=== PATIENT | male | born 1970 ===

== ENCOUNTER 2018-04-20 16:35 | Emergency (ER) | payer OTHER ==
[2018-04-20 16:35] VITALS: BMI 30.7
[2018-04-20 16:59] VITALS: O2SAT 100
[2018-04-20] MEDS ORDERED: Sodium Chloride 0.9% 1,000 ML IV ONE (17:04)
[2018-04-20 17:22] LABS: BASO # 0.1 K/uL (0.0-0.2); BASO % 1.1 % (0.0-2.0); EOS # 0.7 K/uL (0.0-0.7); EOS % 7.1 % (0.0-4.0); HEMOGLOBIN 13.9 g/dL (12.0-18.0); LYMPH % 21.8 % (20.0-40.0); MEAN CELL VOLUME 81.5 fL (80.0-94.0); MEAN CORPUSCULAR HEMOGLOBIN 27.5 pg (27.0-31.0); MEAN CORPUSCULAR HGB CONC 33.8 g/dL (33.0-37.0); MEAN PLATELET VOLUME 8.9 fL (7.2-11.7); MONO # 1.1 K/uL (0.0-0.8); MONO % 11.7 % (0.0-10.0); NEUT # 5.3 K/uL (1.8-7.0); NEUT % 58.3 % (50.0-75.0); NRBC % 0.1 % (0.0-2.0); RBC 5.05 Mil/uL (4.40-5.90); RED CELL DISTRIBUTION WIDTH 15.1 % (11.5-14.5); WHITE BLOOD COUNT 9.2 K/uL (4.8-10.8)
[2018-04-20] MEDS ORDERED: Sodium Chloride 0.9% 1,000 ML ONE (17:22)
--- NOTE | 2018-04-20 17:30 | C.PDOC ---
History Of Present Illness 47 y/o male presents to the ER for evaluation of left thigh injury which occurred 5 days ago. Patient states that he was playing soccer when he was kicked in the left thigh. Patient reports that he did not take any medications. He notes that he was evaluated in the clinic after the injury, he returned to the clinic today because he had bruising below the site of injury. His PCP, recommended him to the ER. Denies having joint pain and other complaints at this time. Time Seen by Provider: 04/20/18 16:57 Chief Complaint (Nursing): Lower Extremity Problem/Injury History Per: Patient History/Exam Limitations: no limitations Onset/Duration Of Symptoms: Days Current Symptoms Are (Timing): Still Present Severity: Moderate Past Medical History Reviewed: Historical Data, Nursing Documentation, Vital Signs Vital Signs: Last Vital Signs Temp 98.7 F 04/20/18 16:56 Pulse 72 04/20/18 16:56 Resp 17 04/20/18 16:56 BP 132/86 04/20/18 16:56 Pulse Ox 100 04/20/18 18:57 - Medical History PMH: Asthma (never hospitalized), Fractures (RIGHT FIBULA) Denies: Chronic Kidney Disease Other Surgeries: Hx of surgeries - [facility] Procedures ANESTH INJEC PERIPH NERV (04/12/15) APPLICATION OF SPLINT (03/28/15) OPEN REDUC-ANKLE DISLOC (04/12/15) OTHER & OPEN REPAIR UMBILICAL HERNIA W GRAFT OR PROSTHESIS (10/10/14) PHYSICAL THERAPY NEC (06/07/15) Family History: States: No Known Family Hx - Social History Hx Tobacco Use: No Hx Alcohol Use: Yes Hx Substance Use: No - Immunization History Hx Tetanus Toxoid Vaccination: Yes Hx Influenza Vaccination: No Hx Pneumococcal Vaccination: No Review Of Systems Except As Marked, All Systems Reviewed And Found Negative. Musculoskeletal: Positive for: Other (left thigh pain) Neurological: Negative for: Weakness, Numbness Physical Exam - Physical Exam Appears: Non-toxic, No Acute Distress Skin: Normal Color, Warm, Dry, Ecchymosis (ecchymosis above left knee) Head: Atraumatic, Normacephalic Eye(s): bilateral: Normal Inspection Nose: Normal Oral Mucosa: Moist Neck: Supple Chest: Symmetrical Cardiovascular: Rhythm Regular Respiratory: Normal Breath Sounds, No Rales, No Rhonchi, No Wheezing Gastrointestinal/Abdominal: Normal Exam, Soft, No Tenderness, No Guarding, No Rebound Extremity: Normal ROM, Tenderness (tenderness to left thigh), Swelling ( swelling to left thigh), Other (left thigh is not firm, no abscess, no erythema , no crepitus, skin is not tense ) Pulses: Left Femoral: Normal (popliteal), Right Femoral: Normal (popliteal), Left Dorsalis Pedis: Normal (DP/PT), Right Dorsalis Pedis: Normal (DP/PT) Neurological/Psych: Oriented x3, Normal Speech ED Course And Treatment - Laboratory Results Result Diagrams: 04/20/18 17:18 04/20/18 17:18 O2 Sat by Pulse Oximetry: 100 (RA) Pulse Ox Interpretation: Normal Medical Decision Making Medical Decision Making: Patient only has thigh pain with no pallor, paralysis, and/or paresthesia. Therefore, given duration of symptoms, compartment syndrome is unlikely. Impression: Thigh Contusion Plan: --CT- LLE --Toradol IV --IV Fluids 1800 - patient reevaluated and pain has improved. leg contusion - case s/o to Dr. Morin at [address] scan results, reevaluation and disposition Disposition - Disposition Disposition Time: 19:00 Condition: STABLE Forms: [facility] (Ukrainian) - Clinical Impression Clinical Impression: Contusion - Scribe Statement The provider has reviewed the documentation as recorded by the Cristyibe Danielle Crump Provider Attestation: All medical record entries made by the Scribe were at my direction and personally dictated by me. I have reviewed the chart and agree that the record accurately reflects my personal performance of the history, physical exam, medical decision making, and the department course for this patient. I have also personally directed, reviewed, and agree with the discharge instructions and disposition. Physician Patient Turnover Patient Signed Over To: Jovan Morin Handoff Comments: pending ct scan results and disposition
[2018-04-20 17:34] LABS: ALB/GLOB RATIO 1.2 (1.0-2.1); ALBUMIN 4.2 g/dL (3.5-5.0); ALT/SGPT 39 U/L (21-72); AST/SGOT 27 U/L (17-59); BLOOD UREA NITROGEN 13 mg/dL (9-20); CALCIUM 9.1 mg/dl (8.6-10.4); GFR AFRICAN-AMERICAN > 60; GFR NON-AFRICAN AMERICAN > 60
[2018-04-20 17:47] LABS: INR 1.1; PROTHROMBIN TIME 11.9 SECONDS (9.7-12.2)
[2018-04-20] MEDS ORDERED: Iodixanol 320 MG/ML 100 ML BOTTLE IV ONE (18:02)
[2018-04-20 20:34] VITALS: BP 133/87; PULSE 70; RESP 18; TEMP 98.2
--- NOTE | 2018-04-21 10:47 | CT ---
Date of service: 04/20/2018 PROCEDURE: CT of the left thigh/femur with contrast HISTORY: left thigh swelling s/p soccer injury COMPARISON: No prior similar study available for comparison. TECHNIQUE: Axial and reformatted coronal and sagittal CT images of the left thigh were obtained from the mid pelvis level to the level of the left knee after IV contrast administration. Total contrast injection: 100 mL Visipaque 320. Total exam DLP: 596.91 FINDINGS: Mild fat stranding noted adjacent to the left is scale tuberosity. No evidence of semimembranous tendon avulsion injury or retraction. No evidence of hematoma or fluid collection. There is also mild fat stranding seen in the anterior aspect of the thigh anterior to the muscle belly with prominence of the vastus musculature which presumably reflects an edema or strain. There is a focal hazy hyper density noted in the region of the clinical concern where the marker is placed which may represent a small intramuscular hematoma or edema with seroma. No contrast extravasation. No evidence of muscle tear or retraction. IMPRESSION: Mild fat stranding noted adjacent to the ischial tuberosity without evidence of muscle injury or retraction. Mild subcutaneous fat stranding in the anterior aspect of the thigh anterior to the muscle belly associated with prominent vastus musculature likely represent mild strain. Hazy focal hyperdensity noted in the region of the anterior thigh musculature likely represent small intramuscular hematoma or edema. Preliminary report was submitted by [facility].
== END 2018-04-20 20:34 | disposition home or self-care (01) ==
LOC: C.ER 16:35
DX: S70.12XA Contusion of left thigh, initial encounter (principal); W50.1XXA Accidental kick by another person, initial encounter; Y93.66 Activity, soccer
CPT/HCPCS: 73701; 80053; 82550; 85025; 85610; 85730; 96361; 96374; 99285; J1885; J7030; Q9967

== ENCOUNTER 2018-12-12 14:31 | Emergency (ER) | payer OTHER ==
[2018-12-12 14:33] VITALS: BMI 30.7
[2018-12-12 14:55] VITALS: O2SAT 95
[2018-12-12] MEDS ORDERED: Sodium Chloride 0.9% 1,000 ML IV ONE ×2 (15:03→19:57)
--- NOTE | 2018-12-12 15:24 | C.PDOC ---
History Of Present Illness 48 y/o male presents to ED stating that while at work around 10pm last night, he used the bathroom to pass some urine and at the end of the stream, he felt some pain and burning at the tip of his penis. He states that a few minutes later, had shaking chill. Patient went home feeling unwell. Reports that he got up this morning with the same chills and pain in urination, and noticed some blood in his urine. Patient also complains of mild suprapubic discomfort but otherwise denies nausea, vomiting, or back pain. He reports he had similar symptoms a year ago and was diagnosed with UTI and treated with antibiotics with improvement. Time Seen by Provider: 12/12/18 14:57 Chief Complaint (Nursing): Male Genitourinary History Per: Patient History/Exam Limitations: no limitations Onset/Duration Of Symptoms: Days Current Symptoms Are (Timing): Still Present Past Medical History Reviewed: Historical Data, Nursing Documentation, Vital Signs Vital Signs: Last Vital Signs Temp 102.2 F H 12/12/18 14:52 Pulse 98 H 12/12/18 14:52 Resp 20 12/12/18 14:52 BP 149/71 12/12/18 14:52 Pulse Ox 95 12/12/18 14:52 - Medical History PMH: Asthma (never hospitalized), Fractures (RIGHT FIBULA) Denies: Chronic Kidney Disease - [facility] Procedures ANESTH INJEC PERIPH NERV (04/12/15) APPLICATION OF SPLINT (03/28/15) OPEN REDUC-ANKLE DISLOC (04/12/15) OTHER & OPEN REPAIR UMBILICAL HERNIA W GRAFT OR PROSTHESIS (10/10/14) PHYSICAL THERAPY NEC (06/07/15) Family History: States: No Known Family Hx - Social History Hx Tobacco Use: No Hx Alcohol Use: Yes Hx Substance Use: No - Immunization History Hx Tetanus Toxoid Vaccination: Yes Hx Influenza Vaccination: No Hx Pneumococcal Vaccination: No Review Of Systems Constitutional: Positive for: Chills. Negative for: Fever Cardiovascular: Negative for: Chest Pain Respiratory: Negative for: Shortness of Breath Gastrointestinal: Positive for: Abdominal Pain (suprapubic). Negative for: Nausea, Vomiting Genitourinary: Positive for: Dysuria, Hematuria. Negative for: Penile Discharge Musculoskeletal: Negative for: Back Pain Physical Exam - Physical Exam Appears: Non-toxic, No Acute Distress Skin: Warm, Dry Head: Atraumatic, Normacephalic Eye(s): bilateral: Normal Inspection Oral Mucosa: Moist Neck: Supple Cardiovascular: Rhythm Regular, No Murmur Respiratory: Normal Breath Sounds, No Rales, No Rhonchi, No Wheezing Gastrointestinal/Abdominal: Soft, No Tenderness Extremity: Bilateral: Atraumatic, Normal Color And Temperature Neurological/Psych: Oriented x3, Normal Speech ED Course And Treatment - Laboratory Results Result Diagrams: 12/12/18 15:28 12/12/18 15:28 Lab Interpretation: Abnormal (WBC 18.7 with left shift, UA WBC 20, RBC 260) O2 Sat by Pulse Oximetry: 95 (RA) Pulse Ox Interpretation: Normal - CT Scan/US Abd/Pel CT Other Rad Studies (CT/US): Read By Radiologist, Radiology Report Reviewed CT/US Interpretation: FINDINGS: LUNG BASES: There is scarring at the lung bases. LIVER: Unremarkable. GALLBLADDER AND BILE DUCTS: The gallbladder appears within normal limits. No radioopaque gallstones are seen. No biliary ductal dilatation is evident. PANCREAS: Unremarkable. SPLEEN: Unremarkable. ADRENAL GLANDS: Unremarkable. KIDNEYS, URETERS, AND BLADDER: Mild perinephric stranding both kidneys. There is no mass or obstruction or calculus. There is no hydronephrosis or hydroureter. No urinary calculi are seen. Bladder wall appears thickened. STOMACH AND BOWEL: Unremarkable appearance of the stomach and bowel. No evidence of bowel obstruction. No evidence suggesting enteritis or colitis. Mild diverticular changes present sigmoid and distal descending colon. APPENDIX: No evidence of acute appendicitis on CT examination. PERITONEUM: No free fluid. No free air. LYMPH NODES: No lymphadenopathy is evident. REPRODUCTIVE: Prostate gland is moderately enlarged. VASCULATURE: No evidence of abdominal aortic aneurysm. BONES: No aggressive appearing osseous lesion. No acute osseous pathology evident. IMPRESSION: No mass or obstruction calculus involving either kidney. Mild perinephric stranding. Moderate enlargement of the prostate gland which is lobulated in contour and indents the base of the bladder. Bladder wall thickening. Diverticulosis sigmoid and descending colon. Clinical correlation advised. Reevaluation Time: 20:04 Reassessment Condition: Improved Medical Decision Making Medical Decision Making: Plan: --Labs --Urine Culture --UA --IV fluids --Tylenol PO --Abd/Pel CT Disposition Counseled Patient/Family Regarding: Studies Performed, Diagnosis, Need For Followup, Rx Given - Disposition Referrals: [facility] [Outside] Disposition: HOME/ ROUTINE Disposition Time: 20:04 Condition: STABLE Additional Instructions: Keep your appointment in the clinic 12/14 as scheduled. Prescriptions: Ciprofloxacin [Cipro] 1 tab PO BID #20 tab Instructions: Kidney Infection Forms: [facility] (Hungarian) - Clinical Impression Clinical Impression: Pyelonephritis, acute - Scribe Statement The provider has reviewed the documentation as recorded by the Elma Gary Provider Attestation: All medical record entries made by the Elma were at my direction and personally dictated by me. I have reviewed the chart and agree that the record accurately reflects my personal performance of the history, physical exam, medical decision making, and the department course for this patient. I have also personally directed, reviewed, and agree with the discharge instructions and disposition.
[2018-12-12 15:31] LABS: BASO # 0.1 K/uL (0.0-0.2); BASO % 0.6 % (0.0-2.0); EOS # 0.1 K/uL (0.0-0.7); EOS % 0.6 % (0.0-4.0); HEMOGLOBIN 14.4 g/dL (12.0-18.0); LYMPH # 1.2 K/uL (1.0-4.3); LYMPH % 6.3 % (20.0-40.0); MEAN CELL VOLUME 82.4 fL (80.0-94.0); MEAN CORPUSCULAR HEMOGLOBIN 27.4 pg (27.0-31.0); MEAN CORPUSCULAR HGB CONC 33.3 g/dL (33.0-37.0); MEAN PLATELET VOLUME 9.6 fL (7.2-11.7); MONO # 2.1 K/uL (0.0-0.8); MONO % 11.4 % (0.0-10.0); NEUT # 15.1 K/uL (1.8-7.0); NEUT % 81.1 % (50.0-75.0); PLATELET COUNT 217 K/uL (130-400); RBC 5.27 Mil/uL (4.40-5.90); RED CELL DISTRIBUTION WIDTH 15.8 % (11.5-14.5); WHITE BLOOD COUNT 18.7 K/uL (4.8-10.8)
[2018-12-12] MEDS ORDERED: Sodium Chloride 0.9% 1,000 ML ONE ×2 (15:48→19:46)
[2018-12-12 15:50] LABS: ALB/GLOB RATIO 1.2 (1.0-2.1); ALBUMIN 4.3 g/dL (3.5-5.0); ALT/SGPT 28 U/L (21-72); AST/SGOT 29 U/L (17-59); BLOOD UREA NITROGEN 10 mg/dL (9-20); GFR NON-AFRICAN AMERICAN > 60; LYMPHOCYTE 5 % (20-40); MONOCYTE 11 % (0-10); NEUTROPHIL 84 % (50-75); PLATELET ESTIMATE NORMAL (NORMAL); TOTAL CELLS COUNTED 100
[2018-12-12 16:15] LABS: SQUAMOUS EPITHIAL < 1 /hpf (0-5); URINE BACTERIA RARE (<OCC); URINE BILIRUBIN NEGATIVE (NEGATIVE); URINE BLOOD 3+ (NEGATIVE); URINE CLARITY Clear (Clear); URINE COLOR Yellow (YELLOW); URINE GLUCOSE (UA) NORMAL (Normal); URINE LEUKOCYTE ESTERASE TRACE Leu/uL (Negative); URINE PROTEIN NEGATIVE (NEGATIVE); URINE UROBILINOGEN NORMAL mg/dL (0.2-1.0)
[2018-12-12] MEDS ORDERED: cefTRIAXone IV 1 gm in Dextros 50 ML IVPB ONE (16:54)
[2018-12-12 21:15] VITALS: BP 116/65; PULSE 75; RESP 17; TEMP 99.9
--- NOTE | 2018-12-12 23:15 | CT ---
Date of service: 12/12/2018 PROCEDURE: CT Abdomen and Pelvis without intravenous contrast HISTORY: hematuria COMPARISON: None. TECHNIQUE: Axial and reformatted coronal and sagittal CT images of abdomen and pelvis were obtained without IV or oral contrast administration. Contrast dose: 0 Radiation dose: Total exam DLP = 723.43 mGy-cm. This CT exam was performed using one or more of the following dose reduction techniques: Automated exposure control, adjustment of the mA and/or kV according to patient size, and/or use of iterative reconstruction technique. FINDINGS: LOWER THORAX: Unremarkable. LIVER: Unremarkable. No gross lesion or ductal dilatation. GALLBLADDER AND BILE DUCTS: Unremarkable. PANCREAS: Unremarkable. No gross lesion or ductal dilatation. SPLEEN: Unremarkable. ADRENALS: Unremarkable. No mass. KIDNEYS AND URETERS: No evidence of nephrolithiasis or hydronephrosis. No definite evidence of solid mass lesion is noted in the kidneys in this noncontrast study. Mild nonspecific bilateral perinephric stranding noted. VASCULATURE: Unremarkable. No aortic aneurysm. No aortic atherosclerotic calcification or mural plaque present. BOWEL: Unremarkable. No obstruction. No gross mural thickening. Few scattered colonic diverticulosis noted without evidence of diverticulitis. APPENDIX: Unremarkable. Normal appendix. PERITONEUM: Unremarkable. No free fluid. No free air. LYMPH NODES: Unremarkable. No enlarged lymph nodes. BLADDER: [id number] circumferential urinary bladder wall thickening noted. REPRODUCTIVE: [id number] enlargement of the prostate noted. BONES: No acute fracture. OTHER FINDINGS: None. IMPRESSION: No evidence of nephrolithiasis or hydronephrosis. Mild nonspecific bilateral perinephric stranding noted. [id number] circumferential urinary bladder wall thickening. [id number] enlarged prostate and seminal vesicles. Preliminary report was submitted by [facility] contains concordant findings.
== END 2018-12-12 21:15 | disposition home or self-care (01) ==
LOC: C.ER 14:31
DX: N10 Acute pyelonephritis (principal)
CPT/HCPCS: 74176; 80053; 81001; 85025; 87086; 87181; 96374; 99285; J0696; J7030